=== PATIENT | female | born 1955 | race Caucasian/White ===

== ENCOUNTER 2018-07-06 09:00 | Inpatient (IN) | payer OTHER ==
--- NOTE | 2018-06-26 21:08 | HP ---
HISTORY AND PHYSICAL: DATE OF SURGERY: 07/06/18 DATE OF OFFICE VISIT: 06/23/18 SURGEON: Marta Gann MD * (DICTATED BY PIPPA PENG) PROCEDURE: Right total hip arthroplasty. CHIEF COMPLAINT: Right hip pain. HISTORY OF PRESENT ILLNESS: Ms. Anguiano is a 62-year-old female with complaints of right hip pain. She has failed conservative treatment and elected to proceed with a right total hip arthroplasty. PAST MEDICAL HISTORY: IBS. PAST SURGICAL HISTORY: Tubal ligation, hysterectomy, lumpectomy. CURRENT MEDICATIONS: 1. Amitiza. 2. Tylenol. 3. Vitamin B. ALLERGIES: To IBUPROFEN causing headaches. FAMILY HISTORY: Cancer and hypertension. SOCIAL HISTORY: She is a 62-year-old female. She lives with her . She does not smoke or use drugs. Uses occasional alcohol. REVIEW OF SYSTEMS: A complete 14-point review of systems was reviewed with the patient. It was all negative or noncontributory. PHYSICAL EXAMINATION GENERAL: She is well developed, well nourished, in no acute distress. VITAL SIGNS: She stands 5 feet 4 inches tall, weighs 160 pounds. Blood pressure 140/90 and heart rate 72. HEENT: Normocephalic, atraumatic. NECK: Supple. No palpable lymph nodes. PULMONARY: The lungs are clear to auscultation bilaterally. CARDIO: Regular rate and rhythm. Strong S1, S2. ABDOMEN: Soft, nontender, nondistended. NEUROLOGICAL: She is alert and oriented x3. MUSCULOSKELETAL: Right lower extremity: The skin is intact. There are no open wounds or abrasions. She has decreased internal and external rotation of the right hip. She walks with antalgic type gait, favoring her right hip. She has 2+ dorsalis pedis pulse, intact sensation and her lower extremity muscle group strengths are intact at 5/5. ASSESSMENT AND PLAN: Ms. Anguiano is a 62-year-old female with end-stage osteoarthritis of the right hip. She has failed conservative treatment and elected to proceed with a right total hip arthroplasty, which is scheduled for 07/06/[address] Gann discussed the risks and benefits of the surgery at today's visit and all of her questions were answered. She will follow up with Dr. Gann 2 weeks after the surgery. PIPPA PENG [id number]/[facility] #: [id number] [facility] CENTERJaspal
[~2018-07-06 09:00] MED LIST: Buffered Lidocaine 0.9% SYRIN* 5 ML/SYR SYRINGE INTRADERM ONE
[2018-07-06] MEDS ORDERED: Propofol* 500 MG/50 ML BTL ONE (10:13)
[2018-07-06] MEDS ORDERED: Lidocaine 2% PF * 5 ML VIAL ONE ×2 (10:13→14:39)
[2018-07-06] MEDS ORDERED: fentaNYL* 50 MCG/ML 2 ML VIAL (100 MCG VIAL) ONE (10:13)
[2018-07-06] MEDS ORDERED: Midazolam* 1 MG/ML 2 ML VIAL (2 MG) ONE ×3 (10:13→14:47)
[2018-07-06] MEDS ORDERED: Propofol* 10 MG/ML 20 ML BTL IV PUSH ONE (10:13)
[2018-07-06] MEDS ORDERED: ROPIVACAINE 5 MG/ML 30 ML BTL (0.5%) ONE ×2 (10:14→12:12)
[2018-07-06] MEDS ORDERED: Bupivacaine 0.5% SDV PF* 30ML VIAL ONE (10:14)
[2018-07-06] MEDS ORDERED: KETAMINE HCL* 50 MG/ML 10 ML VIAL ONE (10:15)
--- OUTSIDE RECORDS SUMMARY | 2018-07-06 10:20 | XMS REPORT | Continuity of Care Document ---
:1955 External Reference #:[id number] Author Name Carmen Arce O.D. Address [address] [place] [address] Care Team Providers Name Role Phone Cj Wolff M.D. Primary Care Physician Unavailable Payers Type Date Identification Numbers Payment Provider Subscriber Policy Number: [id number] [employer] Ppo/Pos/Epo/[place] Anguiano Group Number: [id number] [address] PayID: [id number] [place] [address] Advance Directives Description No Information Available Problems Date Description Provider Status Onset: Irritable bowel syndrome Active Onset: 03/11/2017 Combined form of senile cataract Carmen Arce O.D. Active Onset: 11/19/2015 Regular astigmatism Noy Ferro O.D. Active Onset: 11/19/2015 Presbyopia Noy Ferro O.D. Active Onset: 11/19/2015 Myopia Noy Ferro O.D. Active Onset: 11/19/2015 Nuclear senile cataract Noy Ferro O.D. Active Onset: 11/19/2015 Tear film insufficiency Noy Ferro O.D. 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 [employer] Work Status Full-Time Employment ETOH Use Denies alcohol use Tobacco Use Start: Unknown End: Unknown Patient is a former smoker Recreational Drug Use Denies Drug Use Smoking Status Reviewed: 06/06/18 Patient is a former smoker Allergies, Adverse Reactions, Alerts Date Description Reaction Status Severity Comments 03/11/2017 Ibuprofen Active headache 11/18/2015 NKDA Inactive Medications Medication Date Status Form Strength Qnty SIG Indications Ordering Provider Artificial Active Solution 0.1-0.3% as needed Carmen Lagos Tears 017 Alan Arce Tylenol Active Tablets ER 650mg Unknown Arthritis Pain 000 Amitiza Active Capsules 8mcg Unknown 000 Vitamin B12 Active Tablets 1000mcg Unknown 000 Immunizations Description No Information Available Vital Signs Description No Information Available Results Description No Information Available Procedures Date Code Description Status 03/11/2017 43242 Determination Of Refractive State Completed 03/11/2017 05736 Est Patient Comprehensive Exam Completed 11/19/2015 99762 Determination Of Refractive State Completed 11/19/2015 75244 Est Patient Comprehensive Exam Completed 05/20/2014 31899 Determination Of Refractive State Completed 05/20/2014 30205 Est Patient Comprehensive Exam Completed 08/09/2012 49397 Recheck Completed 05/15/2012 30561 Determination Of Refractive State Completed 05/15/2012 59448 Est Patient Comprehensive Exam Completed Encounters Description No Information Available Plan of Treatment 06/06/2018 - Carmen Arce O.D.H25.813 Combined forms of age-related cataract, bilateralComments:You have been diagnosed with cataracts. If you are happy with your vision as it is now, then we willsee you at your next scheduled appointment. If you feel like your vision is getting worse before your scheduled appointment, please call Ting or Anna at [phone].Follow up:1 Year Follow Up
--- OUTSIDE RECORDS SUMMARY | 2018-07-06 10:20 | XMS REPORT ---
:1955 External Reference #:[id number] Author Organization [facility] Address [address] [place] [address] Phone [phone] Care Team Providers Name Role Phone Cj Wolff MD Primary Care Physician Unavailable Payers Type Date Identification Numbers Payment Provider Subscriber Commercial Policy Number: [id number] [employer] Robert Anguiano Group Number: [id number] [address] PayID: [id number] [place] [address] Problems Date Description Provider Status Onset: 04/07/2018 Localized, primary osteoarthritis Marta Gann M.D. Active Onset: 04/07/2018 Localized, primary osteoarthritis of the Marta Gann M.D. 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 ETOH Use Rarely consumes alcohol Smoking Patient is a former smoker 40 yrs Exercise Type/Frequency Exercises regularly Allergies, Adverse Reactions, Alerts Date Description Reaction Status Severity Comments 04/07/2018 Ibuprofen active 05/15/2014 NKDA inactive Medications Medication Date Status Form Strength Qnty SIG Indications Ordering Provider Amitiza 0 Active One daily Unknown 000 Tylenol 8 Active Tablets ER 650mg one every Unknown Hour 000 6 hours Arthritis as needed Pain for pains Vitamin B Active Unknown 000 Estradiol Active Unknown 000 Naproxen Hx Tablets 500mg 40tabs 1 tablet Marta 014 - with frannie Gann M.D. by mouth 018 twice a day Vital Signs Date Vital Result Comment 06/23/2018 Height 64.5 inches 5'4.50" Weight 161.00 lb Heart Rate 72 /min BP Systolic 140 mmHg BP Diastolic 90 mmHg BMI (Body Mass Index) 27.2 kg/m2 04/07/2018 Height 64.5 inches 5'4.50" Weight 160.00 lb BP Systolic 122 mmHg BP Diastolic 70 mmHg Body Temperature 98.3 F BMI (Body Mass Index) 27.0 kg/m2 05/17/2014 Height 65 inches 5'5" Weight 142.00 lb Heart Rate 74 /min BP Systolic 107 mmHg BP Diastolic 64 mmHg BMI (Body Mass Index) 23.6 kg/m2 Results Test Date Test Result H/L Range Note Laboratory test finding 12/27/2016 Cytology Non-Thermal Cutter Hand SEE RESULT BELOW 1 1 SEE RESULT BELOW Name: ROBERT ANGUIANO : [address]: Lawrence Hebert MD Acct: [id number] Unit: [id number] AGE: 61 Location: Re12/27/16 SEX: F Status: REG REF SPEC: [id number] ARTUR: 12/27/16-[address] [facility] DR: Lasha Aguirre MD REQ: [id number] RECD: 12/27/16 STATUS: LOUISA OSPINA DR: Lawrence Hebert MD _ ORDERED: FN ASP DEEP/2, FNA Imme St Add, FNA IMMEDIATE S/2 FINAL DIAGNOSIS 1) Thyroid, left, Ultrasound guided, fine needle aspiration: --Benign thyroid nodule- involutional type ([place] Class II). 2) Thyroid, right, Ultrasound guided, fine needle aspiration: --Benign thyroid nodule- colloid/hyperplastic type ([place] Class II). 1) The specimen demonstrates abundant watery proteinaceous fluid, a modest amount of benign appearing follicular epithelium arranged in uniform sheets, medium sized follicles and only occasional small groups. Abundant pigmented and non-pigmented macrophages are seen in the background. No features of papillary carcinoma are seen. In this clinical setting the risk of malignancy is less than 3%. Clinical management of this thyroid nodule should be based on clinical and radiographic features as well as the above findings. 2) The specimen demonstrates modest watery colloid, a moderate amount of benign appearing follicular epithelium arranged in uniform sheets, medium sized follicles and only occasional small groups. No features of papillary carcinoma are seen. In this clinical setting the risk of malignancy is less than 3%. Clinical management of this thyroid nodule should be based on clinical and radiographic features as well as the above. 1) #1. THYROID LEFT - US GUIDED LEFT THYROID FINE NEEDLE ASPIRATION, CONTINUED ON NEXT PAGE * ML=Testing performed at Main Lab DEPARTMENT OF PATHOLOGY, [address] [place] [address] Gagan Cullen M.D. Director [facility] # [id number] RUN DATE: 12/28/16 [facility] LAB LIVE PAGE 2 Patient: ROBERT ANGUIANO [id number] (Continued) SPECIMEN(S) RECEIVED: (Continued) 32. THYROID RIGHT - US GUIDED RIGHT THYROID FINE NEEDLE ASPIRATION CLINICAL HISTORY Bilateral thyroid nodules. GROSS DESCRIPTION #1) Ultrasound guided, fine needle aspiration x 1 pass with 3 Alcohol fixed slide(s). #2) Ultrasound guided, fine needle aspiration 3 passes with 2 Alcohol fixed slide(s). Signed (signature on file) Suzi Bowman MD 01/10 1150 END OF REPORT * ML=Testing performed at Main Lab DEPARTMENT OF PATHOLOGY, [address] [place] [address] Gagan Cullen M.D. Director [facility] # [id number] Procedures Date CPT Code Description Status 04/07/2017 14332 Pulmonary Function><Bronchodil Completed 03/14/2017 70895 ECHO Stress Test Incl Perf Contiuous ekg Monitoring Completed W/Phys Superv 05/17/2014 68103 Xray Knee 3 Views Completed 05/17/2014 97920 Rad Exam; Hip Unilat Comp Completed 05/17/2014 05395 Rad Exam; Pelvis Completed Encounters Type Date Location Provider CPT E/M Dx Office Visit 04/07/2018 [facility] Gann M.D. 94505 M25.561 8:30a Of [facility] M25.551 M16.11 M17.11 Office Visit 05/17/2014 1:15p [facility] Gann M.D. 71608 715.35 [facility]. 715.36 718.86 Plan of Care Future Appointment(s):07/17/2018 9:30 am - Marta Gann M.D. at [facility]..07/06/2018 1:30 pm - Cornelio Andre PA-C at [facility]..07/06/2018 1:30 pm - PIPPA Alston at [facility].07/06/2018 1:30 pm - Marta Gann M.D. at [facility]..06/23/2018 - Marta Gann M.D.M25.551 Pain in right hipFollow up:Follow up: 2 weeks after hogujrdE52.11 Unilateral primary osteoarthritis, right hip
--- OUTSIDE RECORDS SUMMARY | 2018-07-06 10:20 | XMS REPORT ---
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 Active Onset: 10/30/2012 Irritable bowel syndrome Cj Wolff M.D. Active Onset: 10/30/2012 Disorder of skin AND/OR subcutaneous Cj Wolff M.D. Active tissue Onset: 07/04/2018 Degenerative joint disease involving Cj Wolff M.D. Active multiple joints Onset: 03/20/2018 Edema Cj Wolff M.D. Active Onset: 03/20/2018 Arthralgia of the pelvic region and Cj Wolff M.D. Active thigh Onset: 02/04/2017 Malaise and fatigue Cj Wolff M.D. Active Onset: 02/04/2017 Abnormal weight gain Cj Wolff M.D. Active Onset: 02/04/2017 Dyspnea Cj Wolff M.D. Active Onset: 01/26/2017 Lyme disease Cj Wolff M.D. Active Onset: 04/16/2016 Adult health examination Cj Wolff M.D. Active Onset: 04/16/2016 Neck pain Cj Wolff M.D. Active Onset: 04/16/2016 Low back pain Cj Wolff M.D. Active Family History Date Family Member(s) Problem(s) Comments Onset: (age 60 Years) Father Peripheral Vascular Disease (PVD) : (age 68 Mother due to Lung Cancer Years) First Brother Skin Cancer First Brother HTN Second Brother Diverticulosis, AAA with stents Onset: (age 35 Years) First Sister Stroke aneurysm First Sister Hypercholesterolemia First Sister Diverticulosis First Sister Lung Cancer Social History Type Date Description Comments Marital Status Patient is Sleep Reports normal sleep activity Occupation [employer] Cigarette Use 2012 Former Cigarette Smoker 1 Pack Daily quit ETOH Use Social Alcohol Daily Caffeine Consumes on average 5 cups of coffee per day Exercise Type/Frequency Current Does not exercise Allergies, Adverse Reactions, Alerts Date Description Reaction Status Severity Comments 04/16/2016 Ibuprofen worsens headache active 10/30/2012 NKDA inactive Medications Medication Date Status Form Strength Qnty SIG Indications Ordering Provider Vitamin B-12 03/07 Active Tablets 500mcg 1 po qd Cj Polo Wolff Amitiza 10/01 Active Capsules 24mcg 180ca take 1 K58.0 ps capsule by claire Wolff M.DKirsten twice daily Tylenol Arthritis 00/ Active Tablets 650mg 1 by mouth Cj FKirsten Pain /0000 ER twice a jessica Wolff.Jose C Dyazide 03/20 Hx Capsules 37.5-25mg 90cap take one Cj s capsule by Marlon Wolff M.DKirsten 07/04 every as needed Prednisone 07/14 Hx Tablets 20mg 14tab 1 twice a L23.7 s day x 7d Adela - [employer] 04/16 Methylprednisolon 07/10 Hx Tablets 4mg 1tabs use as L23.7 Christine e () directed Adela - [employer] 07/14 Linzess 02/13 Hx Capsules 290mcg 30cap Take 1 Cj . s capsule by Marlon Wolff M.Jose C 04/16 daily an empty stomach before first meal of the day for constipati on caused by irritable bowel syn Amoxicillin/Clavu 01/18 Hx Tablets 875-125mg 28tab 1 by mouth 461.0 Christine lanate s twice a Adela, - day with [employer] 02/13 Azithromycin 12/20 Hx Tablets 250mg 6tabs 2 tabs 466.0 today; Hardy, - then one Afnp-C 12/24 tab qd x more days Benzonatate 12/20 Hx Capsules 200mg 30cap 1 po tid 466.0 s prn for Hardy, - cough Afnp-C 12/24 Chantix Starting 10/30 Hx Tablets 0.5mg X refill Cj F. Month 11 & 1 mg with 1 mg New, - X 42 po bid M.D. 05/03 Amitiza 12/13 Hx Capsules 24mcg 180ca 1 by mouth 564.1 Cj F. /2007 ps twice a New, - day M.D. 02/13 Chantix 11/18 Hx 1unit as 305.1 Cj F. /2006 s directed, New, - M.D. 12/13 maintenanc e packs Zithromax 11/18 Hx Tablets 250mg 1tabs 2 po qd 465.9 Cj F. /2006 today , New, - then 1 po M.D. 08/16 qd times Albuterol Mdi 05/07 Hx 1unit 2 Puffs Aravind J. /2004 s Q4H prn Trent, - Cough Or M.D. 06/06 Wheeze /2004 Zithromax 04/23 Hx Tablets 250mg 6tabs 2 tabs day Messi T. /2004 1 Dary, - M.D. 11/18 tab qd days 2 thru 5 Zelnorm 12/17 Hx 6mg 60uni one po ts twice Hardy, - daily Afnp-C 12/13 Amoxicillin 12/17 Hx Tablets 500mg 20tab 1 bid X 10 s Days Hardy, - Afnp-C 12/27 Antivert 10/27 Hx 12.5mg 30uni 1-2 tid Martha ts prn Johnny, - Afnp-C 11/06 Nortryptiline 08/27 Hx 10mg 30uni 1 PO QHS Cj F. Marlon Anderson M.D. 10/27 Z-Pack 08/19 Hx as [place] Marlon Diggs M.D. 08/25 Guaifenesin 01/31 Hx 600mg 20uni One bid ts prn Hardy - Katharinenp-C 02/10 Zithromax 01/31 Hx 250mg 6unit 2 Tabs Day s 1 Hardy - Afnp-C 02/05 Tab qd Days 2 Thru 5 Zithromax 06/29 Hx 250mg 6unit 2 Tabs Day Cj F. s 1 Marlon Wolff M.D. 07/06 Tab qd Days 2 Thru 5 Entex Pse 06/29 Hx 20uni 1 bid prn Cj F. ts Marlon Platt M.D. 07/15 Naproxen 11/14 Hx 250mg 50uni 1-2 PO bid ts prn [facility] [place] Flexeril 11/14 Hx 10mg 60uni 1 tid prn Smith S. alvin Cabral M.D. - 06/29 Naproxen 11/14 Hx 375mg Tab 60uni 1 tid prn Smith S. alvin Cabral M.D. - 06/29 Physical Therapy 11/14 Hx Needs Home Smith S. Traction Polo Cabral - Unit 06/29 Zithromax 09/12 Hx 250mg 6unit 2 Tabs Day s 1 Adela - [employer] 09/22 Tab qd Days 2 Thru 5 Z-Pack 03/25 Hx 1Pack as Cj F. Marlon Forman M.D. 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 Q4H prn Midura, - Cough M.D. 03/25 Zithromax 11/12 Hx 250mg 6unit 2 Tabs Day Messi T. s 1 Midura, - M.D. 03/25 Tab qd Days 2 Thru 5 Zyban 09/06 Hx 150mg 60uni 1 PO qd X Cj F. ts 3 Days, Shallish, - Then M.D. 11/05 To bid Entex Pse 07/15 Hx 30uni 1 bid prn Messi T ts Congestion Midura, - M.D. 11/12 Keflex 07/15 Hx 5Oomg 14uni 1 PO bid X Messi T ts 7 Days Midura, - M.D. 11/12 PT Note 07/15 Hx May Return Messi T To Work [facility], - 07/17 M.D. 11/12 Motrin 07/12 Hx 800mg. 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 ts Shallish, - M.D. 07/12 Motrin 12/19 Hx 800mg. 60uni One tid Cj F. ts prn Shallish, - M.D. 01/18 Flexeril 12/19 Hx 10mg 20uni 1 PO tid Cj F. ts prn Muscle Shallish, - Spasm M.D. 07/12 Tylenol #3 12/19 Hx Tabs #3 40tab 1 PO qid Cj F. s prn Pain Shallish, - M.D. 01/18 Fibercon Hx Tablets 625mg 1 twice a Unknown /0000 day as - needed for 10/07 constipati /2016 on Ranitidine 150 Hx Tablets 150mg 30tab 1 by mouth Unknown Maximum Strength /0000 s daily as - needed 11/28 Immunizations CPT Code Status Date Vaccine Lot # [id number] Given 04/16/2016 Kaylin [id number] Given 12/20/2006 Tdap Tetanus, W Pertussis [id number] Vital Signs Date Vital Result Comment 07/04/2018 BP Systolic 128 mmHg BP Diastolic 78 mmHg Heart Rate 72 /min Body Temperature 97.9 F Respiratory Rate 16 /min Height 64 inches 5'4" Weight 160.00 lb BMI (Body Mass Index) 27.5 kg/m2 03/20/2018 BP Systolic 122 mmHg BP Diastolic 78 mmHg Heart Rate 66 /min Body Temperature 98.1 F Height 64 inches 5'4" Weight 161.00 lb BMI (Body Mass Index) 27.6 kg/m2 02/04/2017 BP Systolic 118 mmHg BP Diastolic 64 mmHg Heart Rate 78 /min Body Temperature 98.8 F Respiratory Rate 16 /min Height 64 inches 5'4" Weight 158.38 lb BMI (Body Mass Index) 27.2 kg/m2 04/16/2016 BP Systolic 120 mmHg BP Diastolic 80 mmHg Heart Rate 64 /min Body Temperature 97.7 F Respiratory Rate 16 /min Height 64 inches 5'4" Weight 152.00 lb BMI (Body Mass Index) 26.1 kg/m2 07/14/2015 Heart Rate 68 /min Body Temperature 97.9 F Height 64 inches 5'4" 07/10/2015 BP Systolic 120 mmHg BP Diastolic 70 mmHg Heart Rate 68 /min Body Temperature 98.0 F Respiratory Rate 18 /min Height 64 inches 5'4" Weight 152.00 lb BMI (Body Mass Index) 26.1 kg/m2 02/13/2015 BP Systolic 130 mmHg BP Diastolic 78 mmHg Heart Rate 78 /min Body Temperature 96.6 F Respiratory Rate 16 /min Height 64 inches 5'4" 01/18/2015 BP Systolic 128 mmHg BP Diastolic 70 mmHg Heart Rate 88 /min Body Temperature 99.0 F Respiratory Rate 18 /min Height 64 inches 5'4" Weight 150.00 lb BMI (Body Mass Index) 25.7 kg/m2 11/28/2014 BP Systolic 130 mmHg BP Diastolic 70 mmHg Heart Rate 68 /min Body Temperature 98.3 F Respiratory Rate 16 /min Height 64 inches 5'4" Weight 145.00 lb BMI (Body Mass Index) 24.9 kg/m2 08/05/2014 BP Systolic 110 mmHg BP Diastolic 72 mmHg Heart Rate 72 /min Body Temperature 97.1 F Respiratory Rate 18 /min Height 64 inches 5'4" Weight 148.00 lb BMI (Body Mass Index) 25.4 kg/m2 05/03/2014 BP Systolic 110 mmHg BP Diastolic 72 mmHg Heart Rate 74 /min Body Temperature 97.4 F Respiratory Rate 18 /min Height 64 inches 5'4" Weight 146.00 lb BMI (Body Mass Index) 25.1 kg/m2 12/20/2012 BP Systolic 110 mmHg BP Diastolic 70 mmHg Heart Rate 76 /min Body Temperature 98.5 F Respiratory Rate 18 /min O2 % BldC Oximetry 98 % Height 64 inches 5'4" Weight 134.00 lb BMI (Body Mass Index) 23.0 kg/m2 10/30/2012 BP Systolic 120 mmHg BP Diastolic 70 mmHg Heart Rate 78 /min Body Temperature 97.8 F Height 64 inches 5'4" Weight 145.12 lb BMI (Body Mass Index) 24.9 kg/m2 05/26/2012 BP Systolic 122 mmHg BP Diastolic 60 mmHg Heart Rate 80 /min Body Temperature 98.8 F Height 64 inches 5'4" Weight 138.00 lb BMI (Body Mass Index) 23.7 kg/m2 12/14/2007 BP Systolic 138 mmHg BP Diastolic 82 mmHg Heart Rate 72 /min Body Temperature 98.0 F Respiratory Rate 16 /min O2 % BldC Oximetry 98 % Height 65 inches 5'5" Weight 154.00 lb BMI (Body Mass Index) 25.6 kg/m2 12/20/2006 BP Systolic 114 mmHg BP Diastolic 54 mmHg Heart Rate 80 /min Body Temperature 98.5 F Respiratory Rate 14 /min Height 65 inches 5'5" Weight 146.00 lb BMI (Body Mass Index) 24.3 kg/m2 11/18/2006 BP Systolic 100 mmHg BP Diastolic 60 mmHg Heart Rate 68 /min Body Temperature 98.0 F Height 65 inches 5'5" Weight 150.00 lb BMI (Body Mass Index) 25.0 kg/m2 06/08/2006 BP Systolic 110 mmHg BP Diastolic 70 mmHg Heart Rate 72 /min Body Temperature 98.2 F Height 65 inches 5'5" Weight 144.00 lb BMI (Body Mass Index) 24.0 kg/m2 05/07/2005 BP Systolic 110 mmHg BP Diastolic 74 mmHg Heart Rate 66 /min Body Temperature 97.8 F Height 65 inches 5'5" Weight 142.00 lb BMI (Body Mass Index) 23.6 kg/m2 04/23/2005 BP Systolic 128 mmHg BP Diastolic 72 mmHg Heart Rate 80 /min Body Temperature 98.7 F Height 65 inches 5'5" Weight 140.00 lb BMI (Body Mass Index) 23.3 kg/m2 12/17/2004 BP Systolic 100 mmHg BP Diastolic 60 mmHg Heart Rate 60 /min Body Temperature 97.1 F Height 65 inches 5'5" Weight 145.00 lb BMI (Body Mass Index) 24.1 kg/m2 10/27/2004 BP Systolic 118 mmHg BP Diastolic 70 mmHg Body Temperature 97.5 F Height 65 inches 5'5" Weight 143.00 lb BMI (Body Mass Index) 23.8 kg/m2 08/27/2003 BP Systolic 100 mmHg BP Diastolic 62 mmHg Heart Rate 80 /min Body Temperature 98.4 F Height 65 inches 5'5" Weight 136.00 lb BMI (Body Mass Index) 22.6 kg/m2 08/19/2003 BP Systolic 118 mmHg BP Diastolic 80 mmHg Heart Rate 84 /min Body Temperature 96.9 F Weight 140.00 lb 01/31/2003 BP Systolic 108 mmHg BP Diastolic 70 mmHg Heart Rate 60 /min Body Temperature 97.3 F Weight 133.00 lb 01/26/2002 BP Systolic 110 mmHg BP Diastolic 64 mmHg Weight 142.00 lb 06/29/2001 BP Systolic 110 mmHg BP Diastolic 66 mmHg Heart Rate 88 /min Body Temperature 97.6 F Respiratory Rate 14 /min Weight 137.00 lb 11/14/2000 BP Systolic 112 mmHg BP Diastolic 80 mmHg Weight 139.00 lb 09/12/2000 BP Systolic 124 mmHg BP Diastolic 60 mmHg Heart Rate 70 /min Body Temperature 95.1 F Weight 137.00 lb 03/25/2000 BP Systolic 114 mmHg Ra SM Cuff BP Diastolic 74 mmHg Ra SM Cuff Body Temperature 96.9 F Weight 139.00 lb 11/12/1999 Body Temperature 97.4 F Weight 138.00 lb 07/15/1998 Body Temperature 96.2 F Weight 132.00 lb 07/12/1998 BP Systolic 130 mmHg BP Diastolic 80 mmHg Body Temperature 95.0 F Weight 131.00 lb 12/19/1997 Body Temperature 97.7 F Height 65 inches 5'5" Weight 130.00 lb 08/05/1997 BP Systolic 102 mmHg BP Diastolic 60 mmHg Weight 137.00 lb Results Test Date Test Result H/L Range Note Urinalysis Profile 06/23/2018 Urine Color Straw Urine Appearance Clear Urine Specific Gideon 1.004 Low 1.010-1.030 Urine pH 6.0 5-9 Urine Urobilinogen Negative Negative Urine Ketones Negative Negative Urine Protein Negative Negative Urine Leukocytes Negative Negative Urine Blood Negative Negative Urine Nitrite Negative Negative Urine Bilirubin Negative Negative Urine Glucose Negative Negative CBC Auto Diff 06/23/2018 White Blood Count 5.4 10^3/uL 3.5-10.8 Red Blood Count 3.90 10^6/uL Low 4.00-5.40 Hemoglobin 13.5 g/dL 12.0-16.0 Hematocrit 40 % 35-47 Mean Corpuscular Volume 101 fL High 80-97 Mean Corpuscular Hemoglobin 35 pg High 27-31 Mean Corpuscular HGB Conc 34 g/dL 31-36 Red Cell Distribution Width 13 % 10.5-15 Platelet Count 252 10^3/uL 150-450 Mean Platelet Volume 7.8 um3 7.4-10.4 Abs Neutrophils 2.7 10^3/uL 1.5-7.7 Abs Lymphocytes 2.3 10^3/uL 1.0-4.8 Abs Monocytes 0.3 10^3/uL 0-0.8 Abs Eosinophils 0 10^3/uL 0-0.6 Abs Basophils 0 10^3/uL 0-0.2 Abs Nucleated RBC 0 10^3/uL Granulocyte % 49.3 % 38-83 Lymphocyte % 43.6 % 25-47 Monocyte % 5.8 % 0-7 Eosinophil % 0.6 % 0-6 Basophil % 0.7 % 0-2 Nucleated Red Blood Cells % 0.2 Inr/Protime 06/23/2018 Inr 0.94 0.77-1.02 Laboratory test finding 06/23/2018 Partial Thrombo Time 32.2 seconds 26.0 -36.3 PTT Comp Metabolic Panel 06/23/2018 Sodium 142 mmol/L 135-145 Potassium 4.1 mmol/L 3.5-5.0 Chloride 107 mmol/L 101-111 Co2 Carbon Dioxide 28 mmol/L 22-32 Anion Gap 7 mmol/L 2-11 Glucose 80 mg/dL 70-100 Blood Urea Nitrogen 12 mg/dL 6-24 Creatinine 0.81 mg/dL 0.51-0.95 BUN/Creatinine Ratio 14.8 8-20 Calcium 9.4 mg/dL 8.6-10.3 Total Protein 6.8 g/dL 6.4-8.9 Albumin 4.5 g/dL 3.2-5.2 Globulin 2.3 g/dL 2-4 Albumin/Globulin Ratio 2.0 1-3 Total Bilirubin 0.80 mg/dL 0.2-1.0 Alkaline Phosphatase 71 U/L 34-104 Alt 15 U/L 7-52 Ast 12 U/L Low 13-39 Egfr Non- 71.6 >60 Egfr 86.7 >60 1 Type & Screen 06/23/2018 Patient Blood Type A Positive Antibody Screen NEGATIVE Urine Culture And Sensitivities 06/23/2018 Urine Culture SEE RESULT BELOW 2 Ict Hemoccult ([facility]) 04/03/2018 Ict Hemoccult (1) neg Ict Hemoccult-(2) neg Ict-Hemoccult (3) neg Comprehensive Metabolic Prof 03/10/2018 Sodium 137 mEq/L 134-149 Potassium 4.2 mEq/L 3.6-5.5 Chloride 98 mEq/L 94-112 Carbon Dioxide 28 mEq/L 21-32 Glucose 97 mg/dL 70-105 BUN 13 mg/dL 6-26 Creatinine 0.9 mg/dL 0.6-1.4 BUN/Creat Ratio 14.4 CALC 8.0-36.0 Calcium 9.4 mg/dL 8.6-10.2 Total Protein 6.9 g/dL 6.4-8.3 Albumin 4.6 g/dL 3.8-5.5 Globulin 2.3 g/dL 2.0-4.8 A/G Ratio 2.0 CALC 0.6-2.3 Alk. Phosphatase 70 U/L 30-110 Alt (SGPT) 13 U/L 7-35 Ast (Sgot) 9 U/L 5-34 Total Bilirubin 1.2 mg/dL 0.2-1.3 GFR Non- >60 ml/min/1.73m^ >=60 GFR >60 ml/min/1.73m^ >=60 Lipid Profile 03/10/2018 Cholesterol 203 mg/dL High 120-200 Triglycerides 126 mg/dL 30-200 HDL Cholesterol 54 mg/dL 30-85 LDL (Calculated) 124 CALC 0-129 VLDL Cholesterol 25 mg/dL 0-50 HDL Risk Factor 3.8 CALC 0.0-4.4 CBC [facility] 03/10/2018 WBC 4.2 x10^3/UL 4.0-10.0 RBC 3.93 x10^6/UL 3.93-6.00 HGB 13.4 g/dL 12.0-17.0 HCT 39 % 35-50 MCV 99.7 fL High 80.0-95.0 MCH 34.1 pg High 25.6-32.2 MCHC 34.2 g/dL 32.2-36.0 RDW-CV 12.3 % 11.6-14.4 PLT 259 x10^3/UL 163-400 MPV 9.6 fL 9.4-12.4 Gabriel# 1.95 x10^3/UL 1.56-6.13 Lymph# 1.80 x10^3/UL 1.18-3.74 Mcmullen# 0.36 x10^3/UL 0.24-0.82 Eos # 0.0 x10^3/UL 0.0-0.5 Baso # 0.04 x10^3/UL 0.01-0.08 Gabriel% 46.6 % 34.0-70.0 Lymph % 43.1 % 20.0-52.0 Mcmullen% 8.6 % 5.0-12.0 Eos% 0.7 % 0.7-7.0 Baso% 1.0 % 0.1-1.2 Laboratory test finding 03/10/2018 TSH 1.81 mIU/L 0.50-6.00 Laboratory test finding 02/04/2017 Brain Natural Peptide 8.9 pg/mL <100 Lyme, Western Blot, Serum 02/04/2017 IgG P93 Ab. Absent 3 IgG P66 Ab. Absent 3 IgG P58 Ab. Absent 3 IgG P45 Ab. Absent 3 IgG P41 Ab. Absent 3 IgG P39 Ab. Absent 3 IgG P30 Ab. Absent 3 IgG P28 Ab. Absent 3 IgG P23 Ab. Absent 3 IgG P18 Ab. Absent 3 Lyme IgG WB Interp. Negative 3, 4 IgM P41 Ab. Absent 3 IgM P39 Ab. Absent 3 IgM P23 Ab. Present 3 Lyme IgM WB Interp. Negative 3, 5 Laboratory test finding 02/04/2017 TSH 1.09 mIU/L 0.50-6.00 Free T4 1.11 ng/dL 0.75-1.54 Vitamin B-12 992 pg/mL 230-1050 Comprehensive Metabolic Prof 02/04/2017 Sodium 140 mEq/L 134-149 Potassium 4.1 mEq/L 3.6-5.5 Chloride 106 mEq/L 94-112 Carbon Dioxide 28 mEq/L 21-32 Glucose 101 mg/dL 70-105 BUN 12 mg/dL 6-26 Creatinine 0.9 mg/dL 0.6-1.4 BUN/Creat Ratio 13.3 CALC 8.0-36.0 Calcium 9.4 mg/dL 8.6-10.2 Total Protein 7.0 g/dL 6.4-8.3 Albumin 4.6 g/dL 3.8-5.5 Globulin 2.4 g/dL 2.0-4.8 A/G Ratio 1.9 CALC 0.6-2.3 Alk. Phosphatase 64 U/L 30-110 Alt (SGPT) 14 U/L 7-35 Ast (Sgot) 12 U/L 5-34 Total Bilirubin 0.8 mg/dL 0.2-1.3 GFR Non- >60 ml/min/1.73m^ >=60 GFR >60 ml/min/1.73m^ >=60 Complete Blood Count 02/04/2017 WBC 5.0 x10^3/UL 3.6-9.6 RBC 4.11 x10^6/UL 3.90-5.70 HGB 13.8 g/dL 12.1-17.2 HCT 41 % 36-50 MCV 99.0 fL High 82.2-97.4 6 MCH 33.5 pg High 27.6-33.3 7 MCHC 33.8 g/dL 33.0-35.5 RDW 13.2 % 11.6-13.7 PLT 313 x10^3/UL 150-400 MPV 7.4 fL 7.4-10.4 Gran # 2.3 x10^3/UL 1.5-7.2 Lymph# 2.5 x10^3/UL 0.7-4.9 Mcmullen# 0.2 x10^3/UL 0.1-0.9 Gran % 44.3 % 42.2-75.2 Lymph % 50.8 % 20.5-51.1 Mcmullen% 4.9 % 1.7-9.3 Ict Hemoccult (a) 05/04/2016 Ict Hemoccult (1) 04/23/16 NEG Ict Hemoccult-(2) 04/24/16 NEG Ict-Hemoccult (3) 04/24/16 NEG Ua - Non Micro (a) 04/16/2016 Appearance CLEAR Color YELLOW Glucose, Urine ([facility]/CTX) NEG Bilirubin NEG Ketones NEG SP Grav <=1.005 Blood NEG PH 5.5 Protein NEG Urobil 0.2 Nitrite NEG Leukocytes ([facility]/Centrex) NEG Laboratory test finding 04/16/2016 Vitamin B-12 290 pg/mL 230-1050 Comprehensive Metabolic Prof 04/06/2016 Sodium 140 mEq/L 134-149 Potassium 4.4 mEq/L 3.6-5.5 Chloride 100 mEq/L 94-112 Carbon Dioxide 30 mEq/L 21-32 Glucose 103 mg/dL 70-105 BUN 12 mg/dL 6-26 Creatinine 0.8 mg/dL 0.6-1.4 BUN/Creat Ratio 15.0 CALC 8.0-36.0 Calcium 9.4 mg/dL 8.6-10.2 Total Protein 6.7 g/dL 6.4-8.3 Albumin 4.6 g/dL 3.8-5.5 Globulin 2.1 g/dL 2.0-4.8 A/G Ratio 2.2 CALC 0.6-2.3 Alk. Phosphatase 64 U/L 30-110 Alt (SGPT) 16 U/L 7-35 Ast (Sgot) 21 U/L 5-34 Total Bilirubin 0.9 mg/dL 0.2-1.3 GFR Non- >60 ml/min/1.73m^ >=60 GFR >60 ml/min/1.73m^ >=60 Lipid Profile 04/06/2016 Cholesterol 183 mg/dL 120-200 Triglycerides 88 mg/dL 30-200 HDL Cholesterol 56 mg/dL 30-85 LDL (Calculated) 109 CALC 0-129 VLDL Cholesterol 18 mg/dL 0-50 HDL Risk Factor 3.3 CALC 0.0-4.4 Complete Blood Count 04/06/2016 WBC 4.7 x10^3/UL 3.6-9.6 RBC 3.82 x10^6/UL Low 3.90-5.70 HGB 13.6 g/dL 12.1-17.2 HCT 39 % 36-50 MCV 102.0 fL High 82.2-97.4 MCH 35.6 pg High 27.6-33.3 MCHC 34.8 g/dL 33.0-35.5 RDW 12.6 % 11.6-13.7 PLT 227 x10^3/UL 150-400 MPV 7.5 fL 7.4-10.4 Gran # 2.6 x10^3/UL 1.5-7.2 Lymph# 1.9 x10^3/UL 0.7-4.9 Mcmullen# 0.2 x10^3/UL 0.1-0.9 Gran % 53.1 % 42.2-75.2 Lymph % 41.3 % 20.5-51.1 Mcmullen% 5.6 % 1.7-9.3 Laboratory test finding 04/06/2016 TSH 1.26 mIU/L 0.50-6.00 8 Ict Hemoccult (a) 05/22/2014 Ict Hemoccult (1) 05/17/14 NEG Ict Hemoccult-(2) 05/18/14 NEG Ict-Hemoccult (3) 05/21/14 NEG Laboratory test finding 05/03/2014 TSH 1.46 mIU/L 0.50-6.00 Free T4 0.99 ng/dL 0.75-1.54 Vitamin B-12 357 pg/mL 230-1050 Vitamin D25 52 30-100 Laboratory test finding 05/03/2014 Hepatitis B Surface Nonreactive Nonreactive 9 Antigen Hepatitis C Antibody Nonreactive Nonreactive 10 Ua - Non Micro (a) 05/03/2014 Appearance clear Color yellow Glucose, Urine ([facility]/CTX) neg Bilirubin neg Ketones neg SP Grav 1.025 Blood neg PH 6.0 Protein neg Urobil 1.0 Nitrite neg Leukocytes (a/[facility]rex) neg Comprehensive Metabolic Prof 04/25/2014 Sodium 138 mEq/L 134-149 Potassium 4.7 mEq/L 3.6-5.5 Chloride 101 mEq/L 94-112 Carbon Dioxide 26 mEq/L 21-32 Glucose 90 mg/dL 70-105 BUN 18 mg/dL 6-26 Creatinine 1.0 mg/dL 0.6-1.4 BUN/Creat Ratio 18.0 CALC 8.0-36.0 Calcium 9.6 mg/dL 8.6-10.2 Total Protein 7.3 g/dL 6.3-8.1 Albumin 4.6 g/dL 3.8-5.5 Globulin 2.7 g/dL 2.0-4.8 A/G Ratio 1.7 CALC 0.6-2.3 Alk. Phosphatase 57 U/L 30-110 Alt (SGPT) 16 U/L 7-35 Ast (Sgot) 13 U/L 5-34 Total Bilirubin 0.7 mg/dL 0.2-1.3 Lipid Profile 04/25/2014 Cholesterol 195 mg/dL 120-200 Triglycerides 55 mg/dL 30-200 HDL Cholesterol 62 mg/dL 30-85 LDL (Calculated) 122 CALC 0-129 VLDL Cholesterol 11 mg/dL 0-50 HDL Risk Factor 3.1 CALC 0.0-4.4 Complete Blood Count 04/25/2014 WBC 4.7 x10^3/UL 3.6-9.6 RBC 3.90 x10^6/UL 3.90-5.70 HGB 13.7 g/dL 12.1-17.2 HCT 39 % 36-50 MCV 100.0 fL High 82.2-97.4 MCH 35.1 pg High 27.6-33.3 MCHC 34.9 g/dL 33.0-35.5 RDW 11.8 % 11.6-13.7 PLT 212 x10^3/UL 150-400 MPV 7.4 fL 7.4-10.4 Gran # 2.3 x10^3/UL 1.5-7.2 Lymph# 2.2 x10^3/UL 0.7-4.9 Mcmullen# 0.2 x10^3/UL 0.1-0.9 Gran % 47.6 % 42.2-75.2 Lymph % 47.8 % 20.5-51.1 Mcmullen% 4.6 % 1.7-9.3 Ua - Micro ([facility]) 03/13/2013 Appearance CLEAR Color YELLOW Glucose NEG Bilirubin NEG Ketones NEG SP Grav 1.015 Blood TRACE-LYSED PH 7.0 Protein NEG Urobil 0.2 Nitrite NEG Leukocytes ([facility]) NEG Hyaline - /Lpf Granular - /Lpf WBC ([facility]) 0-1 RBC 2-3 Mucus - /Lpf Epith RARE /Lpf Bacteria - /Hpf Amorphous - /Lpf Crystals, Fluid ([facility]/CTX) - Z#Comments - Ict Hemoccult (a) 11/08/2012 Ict Hemoccult (1) neg Ict Hemoccult-(2) neg Ict-Hemoccult (3) neg Ua - Micro ([facility]) 11/07/2012 Appearance CLEAR Color YELLOW Glucose, Urine ([facility]/CTX) NEG Bilirubin NEG Ketones NEG SP Grav 1.010 Blood TRACE-LYSED PH 6.5 Protein NEG Urobil 0.2 Nitrite NEG Leukocytes ([facility]) NEG Hyaline - /Lpf Granular - /Lpf WBC ([facility]) 1-2 RBC 2-4 Mucus ([facility]) - /Lpf Epith FEW /Lpf Bacteria TRACE /Hpf Amorphous (Fma/CMC/Centrex) - /Lpf Crystals, Fluid (Fma/CMC/CTX) - Z#Comments - CBC Electronic ([facility]) 11/07/2012 WBC 5.6 3.6-9.6 RBC 4.24 3.90-5.70 Hemoglobin (Fma/CMC/CTX) 14.7 g/dL 12.1 - 17.2 Hematocrit (a/CMC/CTX) 43.3 % 36.1 - 50.3 Platelets 236 10^3/ul 150-400 Lymph% 41.6 20.5-51.1 Mixed% 4.0 Neutrophils % 54.4 Mean Corpuscular Vol 102 High 82.2-97.4 11 Mean Corpuscular Hemoglobin 34.7 High 27.6-33.3 12 Mean Corpuscular Hemo Concen 34.0 32.0-36.0 RDW 11.6 11.6-13.7 Mean Platelet Volume 7.4 6.5-11.0 Comprehensive Metabolic Prof 11/07/2012 Albumin 4.8 g/dL 3.8-5.5 Alk. Phos. 70 U/L 30-110 Alt (SGPT) 14 U/L 7-35 Ast (Sgot) 13 U/L 5-34 BUN 15 mg/dL 6-26 Calcium 9.4 mg/dL 8.6-10.2 Chloride 103 mEq/L 94-112 Creatinine 0.9 mg/dL 0.6-1.4 Carbon Dioxide 25 mEq/L 21-32 Glucose 102 mg/dL 70-105 Sodium 141 mEq/L 134-149 Total Bilirubin 0.6 mg/dL 0.2-1.3 Total Protein 7.2 g/dL 6.3-8.1 Potassium 4.5 mEq/L 3.6-5.5 Globulin 2.4 g/dL 2.0-4.8 A/G Ratio 2.0 Calc 0.6-2.3 BUN/Creat Ratio 17.5 Calc 8.0-36.0 Lipid Profile 11/07/2012 Cholesterol 182 mg/dL 120-200 HDL 58 mg/dL 30-85 Triglycerides 69 mg/dL 30-200 HDL Risk Factor 3.1 CALC 0.0-4.4 LDL (Calculated) 110 CALC 0-129 VLDL (Calculated) 14 mg/dL 0-50 Laboratory test finding 11/07/2012 TSH 1.68 mIU/L 0.50-6.00 Free T4 1.20 ng/dL 0.75-1.54 Ua - Micro (Fma) 10/30/2012 Appearance clear Color yellow Glucose, Urine (Fma/CMC/CTX) neg Bilirubin neg Ketones neg SP Grav 1.020 Blood trace-intact PH 7.0 Protein neg Urobil 0.2 Nitrite neg Leukocytes (Fma/CMC/Centrex) neg Hyaline - /Lpf Granular - /Lpf WBC (Fma,Centrex) 1-2 RBC 5-6 Mucus (Fma/CBC/Centrex) - /Lpf Epith rare /Lpf Bacteria 1+ /Hpf Amorphous (Fma/CMC/Centrex) - /Lpf Crystals, Fluid (Fma/CMC/CTX) - Z#Comments - Laboratory test finding 12/15/2007 Thyroid Peroxidase AB <10.00 IU/mL 0.00-35.00 13 Laboratory test finding 12/14/2007 TSH 0.99 mIU/L 0.50-6.00 Free T4 1.27 ng/dL 0.75-1.54 Laboratory test finding 12/14/2007 Sed Rate (Fma/CMC/Centrex) 6 MM Throat - Beta Strep Fma NEGATIVE @ 48 HRS Ict Hemoccult (Fma) 01/02/2007 Ict Hemoccult (1) 12/21/06 NEGATIVE Ict Hemoccult-(2) 12/22/06 NEGATIVE Ict-Hemoccult (3) 12/23/06 NEGATIVE Complete Blood Count 12/23/2006 WBC 5.1 x10\\S\\3/uL 3.6-9.6 14 Gran# 2.8 x10\\S\\3/uL 1.5-7.2 14 Gran% 55.7 % 42.2-75.2 14 HCT 41 % 36-50 14 HGB 14.3 g/dL 12.1-17.2 14 Lymph# 1.9 x10\\S\\3/uL 0.7-4.9 14 Lymph% 36.5 % 20.5-51.1 14 MCH 35.8 pg High 27.6-33.3 14 MCV 103.4 fL High 82.2-97.4 14 MCHC 34.6 g/dL 33.0-35.5 14 Mo# 0.4 x10\\S\\3/uL 0.1-0.9 14 Mo% 7.8 % 1.7-9.3 14 MPV 8.6 fL 7.4-10.4 14 PLT 174 x10\\S\\3/uL 150-400 14 RBC 4.00 x10\\S\\6/uL 3.90-5.70 14 RDW 11.8 % 11.6-13.7 14 Comprehensive Metabolic Prof 12/23/2006 Albumin 4.6 g/dL 3.8-5.5 14 Alk. Phos. 62 U/L 30-110 14 Alt (SGPT) 17 U/L 7-35 14 Ast (Sgot) 13 U/L 5-34 14 BUN 12 mg/dL 6-26 14 Calcium 10.0 mg/dL 8.6-10.2 14 Chloride 98 mEq/L 94-112 14 Creatinine 0.9 mg/dL 0.6-1.4 14 Carbon Dioxide 28 mEq/L 21-32 14 Glucose 101 mg/dL 70-105 14 Sodium 144 mEq/L 134-149 14 Total Bilirubin 1.0 mg/dL 0.2-1.3 14 Total Protein 7.6 g/dL 6.3-8.1 14 Potassium 4.5 mEq/L 3.6-5.5 14 Globulin 2.9 g/dL 2.0-4.8 14 A/G Ratio 1.6 Calc 0.6-2.2 14 BUN/Creat Ratio 13.7 Calc 8.0-36.0 14 Lipid Profile 12/23/2006 Cholesterol 164 mg/dL 120-200 14 HDL 61 mg/dL 30-85 14 Triglycerides 66 mg/dL 30-200 14 HDL Risk Factor 2.7 CALC Low 4.2-7.0 14 LDL (Calculated) 90 CALC 0-129 14 VLDL (Calculated) 13 mg/dL 0-50 14 Laboratory test finding 12/23/2006 TSH 0.85 mIU/L 0.50-6.00 14 Free T4 1.11 ng/dL 0.75-1.54 14 Ua - Micro (Fma) 12/20/2006 Appearance CLEAR Color YELLOW Glucose NEG Bilirubin NEG Ketones NEG SP Grav 1.015 Blood TRACE-INTACT PH 7.0 Protein, Random Urine NEG Urobil 0.2 Nitrite NEG Leukocytes (Fma/CMC/Centrex) NEG Hyaline - /Lpf Granular - /Lpf WBC (a,Centrex) 0-3 RBC, Fluid 0-3 Mucus --- /Lpf Epith OCCASS. /Lpf Bacteria TRACE /Hpf Amorphous MODERATE AMT /Lpf Crystals, Urine (Fma/CMC/CTX) - /Lpf Misc - Stool For Occult Blood X 3 ( 09/24/2003 Occult Blood #1 NEGATIVE Occult Blood #2 NEGATIVE 08/31/03 Occult Blood #3 NEGATIVE 09/01/03 Iron 3 Ibc 08/27/2003 Iron, Total 73 g/dL 60-150 (Fma/CMC/Centrex) (Fma/CMC/Centrex) Tibc (Fma/Centrex/CMC) 287 g/dL 245-400 Uibc - 90-340 Iron Saturation Percent 25.6 10-45 Folic Acid/B12 Panel 08/27/2003 Folic Acid 14.15 NG/ML 3.00-16.00 B12 355 pg/mL 230-1050 Ua - Non Micro (a New) 08/27/2003 Appearance CLEAR Color LT. YELLOW Glucose, Urine (Fma/CMC/CTX) NEGATIVE Bilirubin NEGATIVE Ketones NEGATIVE SP Grav 1.025 Blood NEGATIVE PH 5.5 Protein NEGATIVE Urobil 0.2 E.U./dL Nitrite NEGATIVE Leukocytes (Fma/CMC/Centrex) NEGATIVE Protein Electro, Serum 08/27/2003 Protein, Total 6.9 g/dL 6.2 - 8.0 Albumin 4.3 3.2 - 5.6 Alpha 1 Globulin, Serum 0.2 g/dL 0.1 - 0.4 Alpha 2 Globulin, Serum 0.9 g/dL 0.4 - 1.2 Beta Globulin, Serum 0.7 g/dL 0.6 - 1.3 Gamma Globulin 0.8 g/dL 0.5 - 1.6 Globulin,Total 2.6 g/dL 2 - 4.5 A/G Ratio 1.7 0.7 - 2 Protein, Total 6.9 g/dL 6.2 - 8.0 Interpretation, Serum * also image 15 Liliana W/RF (Centrex) 08/27/2003 Antinuclear AB ([place]) NEGATIVE@EIA Negative 16 Rheumatoid Factor (RF) <11.0 IU/mL 0 - 20 Laboratory test finding 08/27/2003 C-Reactive Protein <0.3 mg/dL 0 - 0.5 Comp Metabolic ([facility]) 08/21/2003 Glucose, Serum 97 mg/dL 70-118 (a/CMC/CTX) BUN (a/CMC/Centrex) 13 mg/dL 6-26 Creatinine (a/[facility]/CTX) 0.8 mg/dL 0.6-1.4 BUN/Creatinin Ratio 16.9 8.0-36 Sodium 146 134-149 Potassium 5.2 3.6-5.5 Chloride 106 mEq/L 94-112 Co2 30 21-32 Calcium (a/[facility]/Centrex) 8.7 mg/dL 8.6-10.0 Total Protein 7.0 g/dL 6.3-8.1 Albumin (a/CMC/Centrex) 4.6 3.8-5.5 Globulin 2.4 2.0-4.8 A/G Ratio (a/CMC) 1.9 0.6-2.2 Alkaline Phosphatase (F/C/CTX) 64 U/L 30-110 Alt (SGPT) (a/[facility]/Centrex) 17 10-40 Ast (Sgot) (a/[facility]rex) 16 U/mL 5-34 Bilirubin, Total 0.5 mg/dL 0.2-1.3 Lipid Profile (a) 08/21/2003 Cholesterol (a/[facility]rex) 158 mg/dL 120-200 Triglyceride 65 mg/dL 30-200 HDL-Chol 52 30-85 LDL, Calculated (Fma/CMC) 93 CALC 0-129 VLDL 13 0-50 HDL Risk Factor (Fma) 3.1 CALC Low 4.2-7.0 Laboratory test finding 08/21/2003 TSH (Fma/CMC/Centrex) 1.07 uIU/ml 0.5- 6.0 CBC Electronic (a) 08/21/2003 WBC 5.6 3.6-9.6 Lymphocytes 30.8 % 20.5 - 51.1 Monocytes 5.1 % 1.7-9.3 Granulocytes 64.1 % 42.2 - 75.2 Lymphocytes 1.7 10^3/uL 0.7 - 4.9 Monocytes 0.3 10^3/uL 0.1 - 0.9 Granulocytes 3.6 10^3/uL 1.5 - 7.2 RBC 4.22 3.90-5.70 Hemoglobin (Fma/CMC/CTX) 15.3 g/dL 12.1 - 17.2 Hematocrit (Fma/CMC/CTX) 44.0 % 36.1 - 50.3 Mean Corpuscular Vol 104.1 High 82.2-97.4 Mean Corpuscular Hemaglobin 36.2 High 27.6-33.3 Mean Corpuscular Hemo Concen 34.8 33.0-35.5 RDW 12.1 11.6-13.7 Platelets 166. 10^3/ul 150-400 Mean Platelet Volume 8.0 7.4-10.4 1 Because ethnic data is not always readily available, this report includes an eGFR for both -Americans and non- Americans. The National Kidney Disease Education Program (NKDEP) does not endorse the use of the MDRD equation for patients that are not between the ages of 18 and 70, are , have extremes of body size, muscle mass, or nutritional status, or are non- or non-. According to the National Kidney Foundation, irrespective of diagnosis, the stage of the disease is based on the level of kidney function: Stage Description GFR(mL/min/1.73 m(2)) 1 Kidney damage with normal or decreased GFR 90 2 Kidney damage with mild decrease in GFR 60-89 3 Moderate decrease in GFR 30-59 4 Severe decrease in GFR 15-29 5 Kidney failure <15 (or dialysis) 2 SEE RESULT BELOW Name: SHASTA ANGUIANO : [address]: Marta Gann MD Acct: [id number] Unit: [id number] AGE: 62 Location: [facility] Re06/23/18 SEX: F Status: REG REF SPEC: [id number] ARTUR: 06/23/18-[address] [facility] [address]: Marta Gann MD REQ: [id number] RECD: 06/23/18-124 STATUS: ALEXANDER OSPINA DR: Cj Wolff MD _ SOURCE: URINE SPDESC: ORDERED: Urine Culture QUERIES: Urine Source: Random Procedure Result Reported Site Urine Culture Final 06/24/18- 1122 ML Mixed corona; possible contamination. Suggest resubmission. * ML - Main Lab . END OF REPORT DEPARTMENT OF PATHOLOGY, [address] [place] [address] Gagan Cullen M.D. Director [facility] # [id number] 3 1 sst 4 Positive: 5 of the following Borrelia-specific bands: 18,23,28,30,39,41,45,58, 66, and 93. Negative: No bands or banding patterns which do not meet positive criteria. 5 Note: An equivocal or positive EIA result followed by a negative Western Blot result is considered NEGATIVE. An equivocal or positive EIA result followed by a positive Western Blot is considered POSITIVE by the CDC. Positive: 2 of the following bands: 23,39 or 41 Negative: No bands or banding patterns which do not meet positive criteria. Criteria for positivity are those recommended by CDC/ASTPHLD. p23=Osp C, c45=evguhoqvv Note: Sera from individuals with the following may cross react in the Lyme Western Blot assays: other spirochetal diseases (periodontal disease, leptospirosis, relapsing fever, yaws, and pinta); connective autoimmune (Rheumatoid Arthritis and Systemic Lupus Erythematosus and also individuals with Antinuclear Antibody); other infections ([place] Spotted Fever; Alexander-Thorpe Virus, and Cytomegalovirus). 6 consistent w/ previous results 7 NON-FASTING 8 FASTING 9 2 pour off serum (refrigerated) 10 2 pour off serum (refrigerated) 11 results rechecked 12 results rechecked 13 TEST THYROID PEROXIDASE AB WAS ADDED ON 12/15/07 AT 23:28 BY GFN. 1 SST; PLEASE, DO THYROID PEROXIDASE ABS 14 FASTING 15 Normal serum protein electrophoresis. Reviewed by Dr. Sy Santana D.O. 16 (Performed by Enzyme Immunoassay, EIA) Procedures Date CPT Code Description Status Comment 07/04/2018 Mammogram Completed 05/27/2018 Mammogram Completed normal 03/20/2018 09732 CPHL SHQ Completed 03/20/2018 22048 Electrocardiogram Complete Completed 05/18/2017 Mammogram Completed 05/17/2016 Mammogram Completed 04/16/2016 05804 CPHL SHQ Completed 04/16/2016 79801 Electrocardiogram Complete Completed 05/16/2015 Mammogram Completed 07/17/2014 Colonoscopy Completed 05/31/2014 39772 Dxa Bone Density Vertebarl FX Completed Assessment 05/31/2014 47459 Dxa Bone Density Study One Or Completed More Sites Axial Skeleton 05/27/2014 Bone Mineral Density Test Completed Document: 05/31/14 - Dxa Bone Densitometry Report 05/03/2014 67506 Electrocardiogram Complete Completed 05/03/2014 44888 CPHL SHQ Completed 04/30/2014 Mammogram Completed 12/20/2012 54260 Pulse Oximetry Completed 10/30/2012 18258 Electrocardiogram Complete Completed 10/30/2012 40523 CPHL SHQ Completed 05/19/2011 Mammogram Completed 04/08/2010 Mammogram Completed 03/25/2009 Mammogram Completed 02/24/2007 Mammogram Completed 12/20/2006 84446 Electrocardiogram Complete Completed 08/27/2003 26630 Pure Tone Audiometry Completed 08/27/2003 80159 Electrocardiogram Complete Completed Encounters Type Date Location Provider CPT E/M Dx Office Visit 02/04/2017 11:20a [facility] Cj Wolff M.D. 26133 R06.02 R53.81 R63.5 Office Visit 07/14/2015 3:45p Main Office RINA Byers 57122 L23.7 Office Visit 07/10/2015 10:45a [facility] RINA Byers 82780 L23.7 Office Visit 02/13/2015 8:20a Main Office Cj Wolff M.D. 70378 564.1 240.9 Office Visit 01/18/2015 9:15a Main Office RINA Byers 82846 461.0 Office Visit 11/28/2014 9:45a Main Office Jerica DashLance 62381 388.70 465.8 Office Visit 08/05/2014 1:40p [facility] Cj Wolff M.D. 91518 564.1 719.46 Office Visit 05/03/2014 2:00p [facility] Cj Wolff M.D. 40353 240.9 564.1 709.9 719.46 V70.0 Office Visit 12/20/2012 9:45a [facility] Jericaomaira DashLance 90121 466.0 Office Visit 10/30/2012 2:40p [facility] Cj Wolff M.D. 14287 240.9 564.1 709.9 V70.0 V76.51 599.72 Office Visit 05/26/2012 1:15p Main Office RINA Byers 96991 564.1 Office Visit 12/14/2007 3:30p Main Office Cj Wolff M.D. 02820 240.9 465.9 Office Visit 12/20/2006 12:20p Main Office Cj Wolff M.D. 25969 564.1 528.6 V70.0 240.9 V76.41 791.7 V06.5 Office Visit 11/18/2006 1:00p Main Office Cj Wolff M.D. 38192 465.9 305.1 Office Visit 06/08/2006 11:40a Main Office Messi Foote M.D. 97590 465.9 461.9 Office Visit 05/07/2005 10:00a Main Office Aravind Newman M.D. 65820 490 Office Visit 04/23/2005 2:10p Main Office Messi Foote M.D. 70888 466.0 461.9 465.9 Office Visit 12/17/2004 2:00p Main Office Jerica FerrerLance navas 71062 461.9 Office Visit 10/27/2004 11:00a [facility] Lance Sanchez 47882 386.11 Office Visit 08/27/2003 2:30p Main Office Cj Wolff M.D. 86899 V70.0 716.90 564.1 386.11 281.9 Office Visit 08/19/2003 12:10p Main Office Freeman Adler M.D. 44918 490 Office Visit 01/31/2003 9:45a Main Office Jorge Briseno-C 18717 466.0 461.0 Office Visit 01/26/2002 3:40p Main Office Cj Wolff M.D. 33090 Office Visit 06/29/2001 2:00p Main Office Cj Wolff M.D. 77733 Office Visit 11/14/2000 11:00a [facility] Smith Cabral M.D. 98306 Office Visit 09/12/2000 1:45p Main Office Christine Chapman [facility] 05390 Plan of Care 07/04/2018 - Cj Wolff M.D.E04.9 Nontoxic goiter, unspecifiedComments: Consider repeat thyroid ultrasound in October 2019K58.9 Irritable bowel syndrome without diarrheaComments:Currently doing well on present dose of MsybgdmL39.0 Primary generalized (osteo)arthritisComments:I feel she is medically clear for the planned right hip replacement
--- OUTSIDE RECORDS SUMMARY | 2018-07-06 10:20 | XMS REPORT ---
:1955 External Reference #:[id number] Author Organization [employer] Address [address] [place] [address] [place] [address] Phone [phone] Care Team Providers Name Role Phone Cj Wolff MD Primary Care Physician Unavailable Payers Type Date Identification Numbers Payment Provider Subscriber Commercial Policy Number: [id number] [employer] Robert Anguiano [employer] Number: [id number] [address] PayID: [id number] [place] [address] Problems Date Description Provider Status Onset: 04/07/2018 [...] Range Note Laboratory test finding 12/27/2016 Cytology Non-Conduit Bender SEE RESULT BELOW 1 1 SEE RESULT BELOW Name: ROBERT ANGUIANO : [address]: Lawrence Hebert MD Acct: [id number] Unit: [id number] AGE: 61 Location: Re12/27/16 SEX: F Status: REG REF SPEC: [id number] ARTUR: 12/27/16-1055 [facility] DR: Lasha Aguirre MD REQ: [id number] RECD: 12/27/16 STATUS: LOUISA OSPINA DR: Lawrence Hebert MD _ ORDERED: FN ASP DEEP/2, FNA Imme St Add, FNA IMMEDIATE S/2 FINAL DIAGNOSIS 1) Thyroid, left, Ultrasound guided, fine needle aspiration: --Benign thyroid nodule- involutional type ([place] Class II). 2) Thyroid, right, Ultrasound guided, fine needle aspiration: --Benign thyroid nodule- colloid/hyperplastic type ([place] Class II). 1) The specimen demonstrates abundant [...] performed at Main Lab DEPARTMENT OF PATHOLOGY, [address] [place] [address] Gagan Cullen M.D. Director [facility] # [id number] RUN DATE: 12/28/16 [facility] LAB LIVE PAGE 2 Patient: ROBERT ANGUIANO [id number] (Continued) SPECIMEN(S) RECEIVED: (Continued) 32. THYROID RIGHT [...] performed at Main Lab DEPARTMENT OF PATHOLOGY, [address] [place] [address] Gagan Cullen M.D. Director [facility] # [id number] Procedures Date CPT Code Description Status 04/07/2017 64143 Pulmonary Function><Bronchodil Completed 03/14/2017 17662 ECHO Stress Test Incl Perf Contiuous ekg Monitoring Completed W/Phys Superv 05/17/2014 69538 Xray Knee 3 Views Completed 05/17/2014 51171 Rad Exam; Hip Unilat Comp Completed 05/17/2014 21762 Rad Exam; Pelvis Completed Encounters Type Date Location Provider CPT E/M Dx Office Visit 04/07/2018 [facility] Marta Gann M.D. 46555 M25.561 8:30a [facility] M25.551 M16.11 M17.11 Office Visit 05/17/2014 1:15p [facility] Marta Gann M.D. 67419 715.35 [facility]. 715.36 718.86 Plan of Care Future Appointment(s):07/17/2018 9:30 am - Marta Gann M.D. at [facility]..07/06/2018 1:30 pm - Cornelio Andre PA-C at [facility]..07/06/2018 1:30 pm - PIPPA [place] at [facility].07/06/2018 1:30 pm - Marta Gann M.D. at [facility]..06/23/2018 - Marta Gann M.D.M25.551 Pain in right hipFollow up:Follow up: 2 weeks after vxhrzqpU12.11 Unilateral primary osteoarthritis, right hip
[2018-07-06] MEDS ORDERED: ceFAZolin 2 GM PREMIX in ORs 2 GM/50 ML BAG IVPB ONE (10:39)
[2018-07-06] MEDS ORDERED: EPHEDrine (Pressors)* 50 MG/ML VIAL ONE (13:11)
[2018-07-06] MEDS ORDERED: Phenylephrine INJ* 10 MG/ML 1 ML VIAL (10 MG) ONE (13:13)
[2018-07-06] MEDS ORDERED: Naloxone* 0.4 MG/ML 1 ML VIAL IV PRN (13:45)
[2018-07-06] MEDS ORDERED: oxyCODONE TAB* 5 MG TAB PO PRN (13:45)
[2018-07-06] MEDS ORDERED: Ondansetron INJ* 2 MG/ML VIAL IV PRN ×2 (13:45→15:19)
[2018-07-06] MEDS ORDERED: Acetaminophen IV 1GM/100ML * 1,000 MG/100 ML VIAL IVPB ONE (13:45)
[2018-07-06] MEDS ORDERED: HYDROmorphone INJ1* 1 MG/ML SYRINGE IV PRN (13:45)
[2018-07-06] MEDS ORDERED: Dexamethasone IV* 4 MG/ML 1 ML (4 MG) ONE (13:46)
[2018-07-06] MEDS ORDERED: Acetaminophen IV 1GM/100ML * 100 ML ONE (15:05)
--- NOTE | 2018-07-06 15:13 | RAD ---
HISTORY: RIGHT TOTAL HIP REPLACEMENT COMPARISONS: April 07, 2018 VIEWS: 1 , portable intraoperative view of the pelvis during arthroplasty FINDINGS: Single frontal portable view of the lower pelvis during hip arthroplasty demonstrates a right total hip arthroplasty with a temporary femoral sizing component IMPRESSION: LIMITED PORTABLE INTRAOPERATIVE VIEW OF THE PELVIS TO HIP ARTHROPLASTY
[2018-07-06] MEDS ORDERED: diPHENhydraMINE PO* 25 MG PO PRN (15:19)
[2018-07-06] MEDS ORDERED: Morphine VIAL* 4 MG/ML VIAL (1 ml vial) IV PRN (15:19)
[2018-07-06] MEDS ORDERED: diPHENhydraMINE IV* 50 MG/ML 1 ml VIAL (BENADRYL) IV PRN (15:19)
[2018-07-06] MEDS ORDERED: Bisacodyl SUPP* 10 MG SUPP PR PRN (15:19)
[2018-07-06] MEDS ORDERED: Magnesium Hydroxide LIQ* 30 ML UDC PO PRN (15:19)
[2018-07-06] MEDS ORDERED: Ondansetron TAB* 4 MG PO PRN (15:19)
[2018-07-06] MEDS ORDERED: Cyclobenzaprine TAB* 10 MG PO PRN (15:19)
[2018-07-06] MEDS ORDERED: Polyethylene Glycol 3350* 17 GM PACKET PO PRN (15:19)
[2018-07-06] MEDS ORDERED: oxyCODONE/Acetamin 5/325 MG* TAB PO PRN ×2 (15:19)
[2018-07-06] MEDS ORDERED: Warfarin TAB(*) 6 MG PO ONE (17:00)
--- NOTE | 2018-07-06 17:10 | RAD ---
INDICATION: Status post right total hip arthroplasty TECHNIQUE: 2 views of the right hip and 2 views of the right pelvis were obtained. FINDINGS: The recently installed right hip prosthesis is anatomically aligned in the AP and lateral projections. The visualized bones are intact and appropriately aligned. Degenerative changes are noted at the left hip including mild sclerotic change of the roof of the acetabulum as well as mild degenerative changes of the lower sacroiliac joints. IMPRESSION: Anatomic alignment of recently installed right hip prosthesis.
[2018-07-06] MEDS: oxyCODONE TAB* 5 MG TAB PO PRN (19:42)
[2018-07-06] MEDS: ceFAZolin 1 GM in Dextrose (*) 1 GM/50 ML BAG IVPB SCH (21:02)
[2018-07-06] MEDS: LUBIPROSTONE 24 MCG PO SCH (21:04)
[2018-07-06] MEDS: Magnesium Hydroxide LIQ* 30 ML UDC PO SCH (21:04)
[2018-07-06] MEDS: Docusate CAP* 100 MG PO SCH (21:04)
[2018-07-06] MEDS: Acetaminophen TAB* 325 MG PO SCH (21:06)
[2018-07-07] MEDS: oxyCODONE TAB* 5 MG TAB PO PRN (00:02)
[2018-07-07] MEDS: Acetaminophen TAB* 325 MG PO SCH ×3 (05:18→21:43)
[2018-07-07] MEDS: ceFAZolin 1 GM in Dextrose (*) 1 GM/50 ML BAG IVPB SCH ×2 (05:18→12:19)
[2018-07-07 07:21] LABS: Hematocrit 30 % (35-47); Hemoglobin 10.1 g/dl (12.0-16.0); Mean Platelet Volume 7.5 um3 (7.4-10.4); Platelet Count 211 10^3/ul (150-450)
[2018-07-07 07:32] LABS: EGFR Non-African American 82.1 (>60)
[2018-07-07 07:38] LABS: INR 1.01 (0.77-1.02)
[2018-07-07] MEDS: traMADol TAB* 50 MG PO PRN ×2 (07:55→17:17)
[2018-07-07] MEDS: Docusate CAP* 100 MG PO SCH ×2 (07:55→21:42)
[2018-07-07] MEDS: Magnesium Hydroxide LIQ* 30 ML UDC PO SCH ×2 (07:56→21:42)
[2018-07-07] MEDS: LUBIPROSTONE 24 MCG PO SCH ×2 (07:57→21:43)
--- NOTE | 2018-07-07 09:19 | PN ---
Progress Note - Progress Note Date of Service: 07/07/18 SOAP: Subjective: 62 y/o female s/p right total hip arthroplasty by Dr. Gann 07/06/2018. VSS, afebrile overnight. Patient feeling well, working well with PT, concerned about going home as has to do many steps into house. Objective: General- Well appearing, NAD, AO resting comfortably in bed MSK- R LE- DF/PF = b/l, PT 2+, negative homans sign, SITLT b/l, surgical dressing in place, no drainage noted, thigh soft, non-tender. Vital Signs Temp 97.6 F 07/07/18 07:34 Pulse 68 07/07/18 07:34 Resp 16 07/07/18 07:55 BP 97/48 07/07/18 07:34 Pulse Ox 98 07/07/18 07:34 Intake & Output 07/06/18 07/07/18 07/07/18 18:59 06:59 18:59 Intake Total 1300 2055 210 Output Total 300 2750 Balance 1000 -695 210 Weight 72.121 kg Intake: IV Fluids 1300 950 LR 1200 950 NS 100ML, Cefazolin 2G 100 IVPB 55 ABX - CEFAZOLIN 55 Oral 1050 210 Output: Urine 1600 Sinha 300 1150 Assessment: Stable 62 y/o female s/p right total hip arthroplasty by Dr. Gann 07/06/2018. Plan: - DVT prophylaxis- lovenox, coumadin, 6mg tonight - Continue PT/ OT - Follow up with Dr. Gann within 10-14 days - H&H - stable - post-op IV ABX - running - Likely D/C to home tomorrow, No home care- PT at [facility], blood work at [facility] [place], Th. Acetaminophen (Tylenol Tab*) 975 mg PO Q8HR MAHI Last Admin: 07/07/18 05:18 Dose: 975 mg Bisacodyl (Dulcolax Supp*) 10 mg MO DAILY PRN PRN Reason: constipation Cyclobenzaprine HCl (Flexeril Tab*) 10 mg PO TID PRN PRN Reason: SPASMS Diphenhydramine HCl (Benadryl Iv*) 12.5 mg IV Q6H PRN PRN Reason: PRURITIS Diphenhydramine HCl (Benadryl Po*) 25 mg PO Q6H PRN PRN Reason: itching Docusate Sodium (Colace Cap*) 100 mg PO BID [facility] Last Admin: 07/07/18 07:55 Dose: 100 mg Enoxaparin Sodium (Lovenox(*)) 40 mg SUBCUT Q24H [facility] Cefazolin Sodium/Dextrose (Kefzol 1 Gm In Dextrose Duplex (*)) 1 gm in 50 mls @ 200 mls/hr IVPB Q8H [facility] Stop: 07/07/18 13:14 Last Admin: 07/07/18 05:18 Dose: 200 mls/hr Lactated Ringer's (Lactated Ringers 1000 Ml Bag*) 1,000 mls @ 100 mls/hr IV PER RATE [facility] Last Admin: 07/07/18 04:16 Dose: 100 mls/hr Lactulose (Lactulose*) 30 ml PO Q6H PRN PRN Reason: constipation Lubiprostone (Amitiza (Nf)) 24 mcg PO BID [facility] Last Admin: 07/07/18 07:57 Dose: Not Given Magnesium Hydroxide (Milk Of Magnesia Liq*) 30 ml PO BID [facility] Last Admin: 07/07/18 07:56 Dose: Not Given Magnesium Hydroxide (Milk Of Magnesia Liq*) 30 ml PO Q6H PRN PRN Reason: constipation Morphine Sulfate (Morphine Vial*) 2 mg IV Q2H PRN PRN Reason: PAIN - SEVERE Ondansetron HCl (Zofran Inj*) 4 mg IV Q6H PRN PRN Reason: nausea Ondansetron HCl (Zofran Tab*) 4 mg PO Q6H PRN PRN Reason: NAUSEA Oxycodone HCl (Roxycodone Tab*) 10 mg PO Q4H PRN PRN Reason: SEVERE PAIN Last Admin: 07/07/18 00:02 Dose: 10 mg Oxycodone/Acetaminophen (Percocet 5/325 Tab*) 1 tab PO Q4H PRN PRN Reason: PAIN Oxycodone/Acetaminophen (Percocet 5/325 Tab*) 2 tab PO Q4H PRN PRN Reason: PAIN Polyethylene Glycol/Electrolytes (Miralax*) 17 gm PO DAILY PRN PRN Reason: Constipation Tramadol HCl (Ultram*) 50 mg PO Q6H PRN PRN Reason: PAIN Last Admin: 07/07/18 07:55 Dose: 50 mg
[2018-07-07] MEDS: Enoxaparin(*) 40 MG/0.4 ML SYR SUBCUT SCH (12:20)
--- NOTE | 2018-07-07 16:03 | OP ---
OPERATIVE NOTE: DATE OF OPERATION: 07/06/18 DATE OF : 55 SURGEON: Marta Gann MD JUNIOR SALES REPRESENTATIVE: PIPPA Eli Ms. did help throughout the procedure with preparation of the leg, wound retraction, manipul ation of the hip, and wound closure. ANESTHESIOLOGIST: Dr. Valero. ANESTHESIA: Spinal. PRE-OP DIAGNOSIS: Severe end-stage degenerative osteoarthritis of the right hip. POST-OP DIAGNOSIS: Severe end-stage degenerative osteoarthritis of the right hip. OPERATIVE PROCEDURE: Right total hip arthroplasty. COMPLICATIONS: None. ESTIMATED BLOOD LOSS: 300 cc. SPECIMENS: Femoral head and acetabular reaming sent to pathology. HARDWARE: This is uncemented [place] total hip arthroplasty hardware. For the cup, a 52D Tritanium cluster hole shell. For the insert, a Trident X3 0-degree Polyethylene insert 32D. For the stem, an Accolade 2 size 3 with a 120 degree neck. For the head, a Biolox delta V40 ceramic femoral head 32 +0. BRIEF HISTORY/INDICATION: Ms. Anguiano is a 62-year-old female with years of increasingly severe right hip pain. Radiographs showed [id number] arthritis. She failed conservative treatment with antiinf lammatories, pain medications, and physical therapy. Due to continued pain and decreased quality of life, she elected to undergo a right total hip arthroplasty. Informed consent was obtained from the patient. She understood the risks of surgery included, but were not limited to bleeding, infection, damage to nearby structures, continued pain, need for further surgery, intraoperative fractures, nerv e palsy, hardware failure or loosening, dislocation, left length discrepancy, stroke, heart attack, b lood clot, and . She wished to proceed. INTRAOPERATIVE FINDINGS: Intraoperatively, the patient was noted to have complete loss of cartilage in the femoral head and acetabulum. She had significant osteophyte formation around the acetabulum. DESCRIPTION OF PROCEDURE: Ms. Anguiano was identified in the preanesthesia unit. Her right lower extre mity was marked as the correct operative side. Informed consent was signed and placed in the chart. The patient was taken to the operating room and placed under spinal anesthesia. A Sinha catheter wa s placed. The patient was placed in a left lateral decubitus position on the peg board. All bony pr ominences were well padded. Right lower extremity was prepped and draped in the usual sterile fashio n. Preop time-out was made to correctly identify the patient side and site. Appropriate perioperati ve antibiotics were given within 1 hour of incision. A 12-cm posterior hip incision was made with a 10 blade and carried down to the lateral fascial layer . Lateral facial layer was incised in line with the skin incision. Charnley retractor was placed. The piriformis and conjoint tendons were identified. These were elevated off the posterolateral femu r using electrocautery. Next, the electrocautery was used to make a standard posterolateral capsular flap. This was also tagged with #5 Ethibond. The hip was carefully dislocated. Lesser troch to the center of the femoral head measured 55 mm. The oscillating saw was used to make the appropriate femo ral neck cut. Femoral head was removed. The femur was carefully retracted anteriorly. After appropriate placement of retractors, the acetabu lum was well visualized. Long-handled knife was used to sharply remove any remaining labrum from the acetabular rim. The acetabulum was sequentially reamed up to a size 51. 51 reamer had bleeding sub chondral bone bed. 51 trial had good fit with appropriate anteversion and abduction angle. Final imp lant chosen was a 52D Tritanium cluster hole shell. This was impacted into the acetabulum without di fficulty. Stability of the cup was excellent. There was appropriate anteversion and abduction angle . A Trident X3 0-degree polyethylene insert 32D was chosen. This was locked into position in the ac etabulum. Stability of the insert was checked and rechecked and noted to be stable. Attention was next turned to preparation of the femoral canal. A canal finder was used to enter the p roximal femur. The femur was sequentially broached up to a size 3. Size 3 broach had good fit and stability with appropriate anteversion. A 127 neck trial with a 3 2 +0 head trial was chosen. Lesser troch to the center of the femoral head measured 56 mm. The hip was then reduced and taken through a range of motion. The hip was stable in all positions. Soft tis constantino tension and leg lengths were appropriate. The hip was carefully dislocated. All trails were rem greta. Final implant chosen was an Accolade 2 size 3 with a 127 degree neck angle. This was impacted into the femoral canal without difficulty. The stem was stable with appropriate anteversion. A Biol ox delta ceramic V40 femoral head 32 +0 was chosen. This was impacted on to the femoral neck. Lesser troch to the center of the femoral head measured 55 mm. The hip was reduced and taken through a ran ge of motion. The hip was stable in all positions. There was good soft tissue tension and appropria te leg lengths. The hip was copiously irrigated with sterile saline. Previously tagged tendons and c apsule were reapproximated to the posterolateral femur through trochanteric drill holes. The lateral fascial layer was closed using interrupted #1 Vicryls. The rest of the incision was closed in a lay ered fashion using 0 and 2-0 Vicryls. Skin was closed using running 3-0 Monocryl and Dermabond. Ster ile Adaptic, 4x4s, and paper tape were used to cover the incision. The patients's anesthesia was reversed without difficulty. She was taken to the PACU in stable condi tion. Intended weightbearing will be weightbearing as tolerated. Intended DVT prophylaxis will be Patrice hinds with a Lovenox bridge. [id number]/[facility] #: [id number]
[2018-07-07] MEDS ORDERED: Warfarin TAB(*) 6 MG PO SCH (17:00)
[2018-07-08 06:02] LABS: Hematocrit 28 % (35-47); Hemoglobin 9.5 g/dl (12.0-16.0); Mean Platelet Volume 7.4 um3 (7.4-10.4); Platelet Count 184 10^3/ul (150-450)
[2018-07-08 06:08] LABS: INR 1.45 (0.77-1.02)
[2018-07-08] MEDS: Acetaminophen TAB* 325 MG PO SCH (06:30)
[2018-07-08] MEDS: LUBIPROSTONE 24 MCG PO SCH (08:06)
[2018-07-08] MEDS: Magnesium Hydroxide LIQ* 30 ML UDC PO SCH (08:06)
[2018-07-08] MEDS: Docusate CAP* 100 MG PO SCH (08:06)
[2018-07-08] MEDS ORDERED: NS 0.9% 1000 ML* 1,000 ML IV ONE (08:18)
--- NOTE | 2018-07-08 12:04 | PN ---
Progress Note - Progress Note Date of Service: 07/08/18 SOAP: Subjective: Pt is doing well. Pain is controlled. Denies CP/SOB, lightheadedness. Denies calf pain. Doing well with PT Objective: PE- 62 y/o WDWN F NAD RLE- dressing changed, inc c/d/i no sign of infection, calf soft N/T, +2 DP pulse, SILT distally, +DF/PF ankle Vital Signs Temp Pulse Resp BP Pulse Ox 99.0 F 78 16 101/52 98 07/08/18 11:03 07/08/18 11:03 07/08/18 11:03 07/08/18 11:03 07/08/18 11:03 Laboratory Results - last 24 hr 07/08/18 07/08/18 05:51 05:51 Hgb 9.5 L Hct 28 L Plt Count 184 MPV 7.4 INR (Anticoag Therapy) 1.45 H Assessment: POD 2 S/P Right JAYSHREE with Dr. Gann Plan: WBAT cont PT Soft BP improved with bolus, pt asymptomatic Cont coumadin for DVT prophylaxis Colace for constipation, oxycodone and tylenol for pain DC to home today with outpt pt and lab draws F/U Dr. Gann 10-14 days post op
[2018-07-08] MEDS: Enoxaparin(*) 40 MG/0.4 ML SYR SUBCUT SCH (12:12)
[2018-07-08 13:21] VITALS: BP 105/46
--- NOTE | 2018-07-09 00:07 | DS ---
AMENDED REPORT NOW INCLUDES COSIGNER DESIGNATION - ESIGNED BEFORE ADJUSTMENTS DISCHARGE SUMMARY: DATE OF ADMISSION: 07/06/18 DATE OF DISCHARGE: 07/08/18 PROVIDER: Dr. Marta Gann.* (DICTATED BY PIPPA YI) ADMITTING DIAGNOSIS: Status post right total hip arthroplasty for severe right hip osteoarthritis. SECONDARY DIAGNOSIS: Irritable bowel syndrome. CONSULTATIONS: Physical Therapy and Occupational Therapy. HISTORY OF PRESENT ILLNESS: Ms. Anguiano is a 62-year-old female, who presented to the clinic with right hip pain due to severe osteoarthritis. She failed conservative treatment and therefore elected to undergo a right total hip arthroplasty with Dr. Gann on 07/06/18. HOSPITAL COURSE: Ms. Anguiano was admitted to [facility] on 07/06/18. She underwent a right total hip arthroplasty. Postoperatively, she recovered on the short-stay surgical unit. Postop day 1, Sinha catheter was removed and she was able to urinate on her own. She advanced to a regular diet without difficulty. Pain was controlled with oral Percocet and she was restarted on home medications. Labs and vitals remained stable. She was able to weight bear as tolerated on the right lower extremity and advanced appropriately with physical therapy and occupational therapy. DVT prophylaxis was managed with Lovenox and Coumadin until she reached a therapeutic INR. By postop day 2, she was orthopedically and medically stable to discharge to home with outpatient lab draws and physical therapy. DISCHARGE CONDITION: Stable. DISCHARGE MEDICATIONS: Home medications continued on discharge to include: 1. Amitiza 24 mcg p.o. b.i.d. 2. Tylenol 650 mg by mouth as needed for pain. 3. Vitamin B12 1000 mcg sublingual every morning. 4. Acetaminophen 975 mg by mouth every 8 hours as needed. New medications on discharge to include: 1. Colace 100 mg by mouth 2 to 3 times a day as needed for constipation. 2. Oxycodone 5 mg 1 to 2 tabs every 4 to 6 hours as needed for pain, MDD of 10. 3. Coumadin 2 mg 1 to 5 tabs by mouth daily as directed by doctor. DISCHARGE INSTRUCTIONS: The patient is weightbearing as tolerated. Okay to shower postop day 3. No bathing, swimming, or submerging of the wound. Use gentle soap and pat dry, cover with gauze and tape. Call the orthopedic office if increased drainage, redness, increased pain, or fever. Go to the ER with shortness of breath or chest pain. Regular diet. Increase fluids and fiber to prevent constipation. Continue Colace as needed for constipation. If no bowel movement within 48 hours, call the office. Continue posterior hip precautions. Continue physical therapy outpatient twice a week. Wound checks daily. Outpatient blood draws for INR. Coumadin dosing: Continue Coumadin for DVT prophylaxis x30 days postop. Dosing on 07/08/18 8 mg, dosing on 07/09/18 8 mg. Redraw 07/10/18. Continue oxycodone 5 mg as needed for discomfort and Tylenol as needed for pain. Antibiotics will be required prior to any dental work. She will follow up in 10 to [address] Gann. Her medications were sent to [facility] Meds to [facility]. PIPPA YI [id number]/[facility] #: [id number] LOVE
== END 2018-07-08 13:50 | disposition home or self-care (01) | DRG 470 ==
LOC: AA 10:15 → SSU 17:59
PROVIDERS: ADMIT Orthopaedic Surgery Adult Reconstructive Orthopaedic Surgery; ATTEND Orthopaedic Surgery Adult Reconstructive Orthopaedic Surgery
PROC: 0SR904A Replacement of Right Hip Joint with Ceramic on Polyethylene Synthetic Substitute, Uncemented, Open Approach (ICD-10-PCS; principal; 2018-07-06 13:00)
DX: M16.11 Unilateral primary osteoarthritis, right hip (principal); K58.9 Irritable bowel syndrome, unspecified; M25.751 Osteophyte, right hip; K59.00 Constipation, unspecified; E04.9 Nontoxic goiter, unspecified; M50.123 Cervical disc disorder at C6-C7 level with radiculopathy; L98.9 Disorder of the skin and subcutaneous tissue, unspecified; Z98.51 Tubal ligation status; Z90.710 Acquired absence of both cervix and uterus; Z72.89 Other problems related to lifestyle; Z82.49 Family history of ischemic heart disease and other diseases of the circulatory system; Z80.9 Family history of malignant neoplasm, unspecified; Z88.6 Allergy status to analgesic agent; Z82.3 Family history of stroke; Z87.891 Personal history of nicotine dependence; Z80.0 Family history of malignant neoplasm of digestive organs; Z80.8 Family history of malignant neoplasm of other organs or systems; Z83.49 Family history of other endocrine, nutritional and metabolic diseases; Z84.89 Family history of other specified conditions; Z79.01 Long term (current) use of anticoagulants
CPT/HCPCS: 36415; 72170; 80048; 85014; 85018; 85049; 85610; 88304; 88311; A9270-GY; C1776; J0690; J1100; J1650; J2250; J2704; J2795; J3010